=== PATIENT | female | born 1945 | race Caucasian/White ===

== ENCOUNTER → 2017-01-14 | Outpatient (CLI) | payer OTHER | LOC: CIMAGING 08:43 | PROVIDERS: ATTEND Physician Assistant Medical | DX: N28.1 Cyst of kidney, acquired (principal) | CPT/HCPCS: 76770-PO ==

== ENCOUNTER → 2017-02-03 | Outpatient (CLI) | payer OTHER | LOC: FIMAGING 13:46 | PROVIDERS: ATTEND Family Medicine | DX: Z12.31 Encounter for screening mammogram for malignant neoplasm of breast (principal) | CPT/HCPCS: G0202 ==

== ENCOUNTER 2017-02-21 10:45 | Emergency (ER) | payer OTHER ==
[2017-02-21] MEDS ORDERED: ASPIRIN 81 MG CHEWABLE TAB PO ONE (10:59)
[2017-02-21 11:00] VITALS: RESP 16; TEMP 98.2
--- NOTE | 2017-02-21 11:04 | EDPHY ---
H & P Time Seen by Provider: 02/21/17 10:50 HPI/ROS: HPI Chest discomfort, shortness of breath. 71-year-old female by private vehicle with her . This patient reports that last night at 1:30 a.m. she woke up with what she felt was a fast heart rate. She checked her pulse and her pulse was 80. She then went back to sleep. She then woke up this morning at 6:30 a.m. to 7:00 a.m. and describe having a chest discomfort which she describes as an aching on the anterior aspect of her chest. She reports that she also noted she felt short of breath when she walked upper stairs. She reports that she massaged her chest and her chest discomfort went away. She denies any chest discomfort at this time. She states that she feels mildly short of breath at this time but that has improved as well. She denies any history of coronary artery disease. She had a nuclear stress test done 2 years ago but is unsure of the details of the results of that test. This was done through Dr. Ricco Mccloud. ROS: Constitutional: No fever, no chills. No weakness. Eyes: No discharge. No changes in vision. ENT: No sore throat. No nasal congestion or rhinorrhea. Respiratory: No cough. As above. Cardiac: As above. Gastrointestinal: No abdominal pain, no vomiting, no diarrhea. Genitourinary: No hematuria. No dysuria or increased frequency with urination. Musculoskeletal: No back pain. No neck pain. No myalgias or arthralgias. Skin: No rashes. Neurological: No headache. No focal weakness or altered sensation. Past medical history: Chronic back pain, hypothyroidism. Social history: Nonsmoker. . Here with her . Physical Exam: General Appearance: Alert, no distress. This patient is responding to questions appropriately and in full sentences. This patient appears well- hydrated and well-nourished. Eyes: Pupils equal and round no pallor or injection. No lid edema, erythema or injection. Respiratory: There are no retractions, lungs are clear to auscultation with good air movement bilaterally. Cardiovascular: Regular rate and rhythm. No murmur appreciated. Gastrointestinal: Abdomen is soft and nontender, no masses, bowel sounds normal. No focal tenderness at McBurney's point. No Ren sign. Neurological: Motor sensory function is grossly intact. Cranial nerves are normal. Gait is normal. Skin: Warm and dry, no rashes. Musculoskeletal: Neck is supple and nontender. Extremities are symmetrical. All joints range without pain or impingement. Psychiatric: No agitation. No depression. Database: EKG: EKG time is 11:08 a.m.; EKG shows a narrow complex normal sinus rhythm with a ventricular rate of 62. The MS, QRS, QT intervals are within normal limits. There are no ST-T wave changes indicative of ischemic or injury pattern. No evidence of right heart strain. Interpreted by me. Imaging: Chest x-ray AP portable; the cardiac mediastinal silhouette is unremarkable. No evidence of infiltrate or pneumothorax. No acute cardiopulmonary disease process noted. Interpreted by me. Procedures: Emergency department course: IV placed. She was placed on a ceramic painter. She was given 324 mg of chewed aspirin. EKG and chest x-ray obtained. 12:00 p.m., patient re-evaluated. Resting comfortably at this time. Vital signs reviewed and are normal. I discussed the results of her EKG, chest x-ray and blood work. All reassuring. I discussed admission for observation. She is not sure she wants to do this. I discussed the reasoning for this. She wants to discuss it further with her . 12:20 p.m., patient re-evaluated. Resting comfortably. No chest pain. She does not want to be admitted at this time. I discussed the reasoning for admission the possible detrimental affects of not being admitted. In my professional opinion she understands this. She is requesting discharge. Her consents. I discussed follow-up through her life skills consultant, Dr. Kehinde Mccloud for provocative testing within the next 2-3 days. Return to emergency department precautions were thoroughly reviewed with her and her . All of their questions were answered. She was discharged in good condition. Differential Diagnosis: The differential diagnosis on this patient includes but is not limited to chest wall discomfort, anxiety reaction. Pulmonary embolism, acute coronary syndrome , myocardial infarction, pericarditis, myocarditis, congestive heart failure unlikely. This represents a partial list of diagnoses considered. These considerations are based on history, physical exam, past history, reassessment and diagnostic testing. Smoking Status: Never smoked Constitutional: Initial Vital Signs Temperature (C) 36.8 C 02/21/17 10:57 Heart Rate 65 02/21/17 10:57 Respiratory Rate 16 02/21/17 10:57 Blood Pressure 160/62 H 02/21/17 10:57 O2 Sat (%) 95 02/21/17 10:57 O2 Delivery Mode Room Air Allergies/Adverse Reactions: cyclobenzaprine HCl [From Flexeril] Allergy (Verified 07/11/16 12:51) Home Medications: Medication Instructions Recorded Levothyroxine [Synthroid 137 mcg 137 mcg PO DAILY 05/10/12 (RX)] Medical Decision Making - Diagnostics Imaging Results: Imaging Impressions Chest X-Ray 02/21/17 11:00 IMPRESSION: No evidence for acute cardiopulmonary abnormality. - Data Points Laboratory Results: Laboratory Results 02/21/17 11:15 02/21/17 11:15 02/21/17 02/21/17 02/21/17 11:15 11:15 11:15 WBC 6.81 10^3/uL 10^3/uL (3.80-9.50) RBC 4.70 10^6/uL 10^6/uL (4.18-5.33) Hgb 14.1 g/dL g/dL (12.6-16.3) Hct 41.7 % % (38.0-47.0) MCV 88.7 fL fL (81.5-99.8) MCH 30.0 pg pg (27.9-34.1) MCHC 33.8 g/dL g/dL (32.4-36.7) RDW 12.3 % % (11.5-15.2) Plt Count 266 10^3/uL 10^3/uL (150-400) MPV 10.0 fL fL (8.7-11.7) Neut % (Auto) 64.8 % % (39.3-74.2) Lymph % (Auto) 26.7 % % (15.0-45.0) [place] % (Auto) 5.9 % % (4.5-13.0) Eos % (Auto) 1.8 % % (0.6-7.6) Baso % (Auto) 0.7 % % (0.3-1.7) Nucleat RBC Rel Count 0.0 % % (0.0-0.2) Absolute Neuts (auto) 4.41 10^3/uL 10^3/uL (1.70-6.50) Absolute Lymphs (auto) 1.82 10^3/uL 10^3/uL (1.00-3.00) Absolute Monos (auto) 0.40 10^3/uL 10^3/uL (0.30-0.80) Absolute Eos (auto) 0.12 10^3/uL 10^3/uL (0.03-0.40) Absolute Basos (auto) 0.05 10^3/uL 10^3/uL (0.02-0.10) Absolute Nucleated RBC 0.00 10^3/uL 10^3/uL (0-0.01) Immature Gran % 0.1 % % (0.0-1.1) Immature Gran # 0.01 10^3/uL 10^3/uL (0.00-0.10) PT 13.0 SEC SEC (12.0-15.0) INR 1.01 (0.83-1.16) APTT 27.3 SEC SEC (23.0-38.0) D-Dimer 0.34 ug/mLFEU ug/mLFEU (0.00-0.50) Sodium 144 mEq/L mEq/L (134-144) Potassium 4.2 mEq/L mEq/L (3.5-5.2) Chloride 104 mEq/L mEq/L (97-110) Carbon Dioxide 25 mEq/l mEq/l (22-31) Anion Gap 15 mEq/L mEq/L (8-16) BUN 17 mg/dL mg/dL (7-23) Creatinine 0.9 mg/dL mg/dL (0.6-1.0) Estimated GFR > 60 Glucose 70 mg/dL mg/dL (70-100) Calcium 9.0 mg/dL mg/dL (8.5-10.4) Creatine Kinase 65 IU/L IU/L (0-156) CK-MB (CK-2) Fraction 0.60 ng/mL ng/mL (0-4.55) Troponin I < 0.012 ng/mL ng/mL (0-0.034) NT-Pro-B Natriuret Pep 79 pg/mL pg/mL (0-125) Medications Given: Discontinued Medications Aspirin (Aspirin) 324 mg PO EDNOW ONE Stop: 02/21/17 11:00 Last Admin: 02/21/17 11:13 Dose: 324 mg Departure - Departure Disposition: Home, Routine, Self-Care Clinical Impression: Chest wall discomfort, Transient dyspnea Condition: Good Instructions: Chest Wall Pain (ED) Additional Instructions: Read and follow provided instructions. Follow-up with your your life skills consultant, Dr. Ricco Mccloud, within the next 2-3 days for re-evaluation and provocative testing as discussed. Call his office Wednesday morning for appointment time. Return to the emergency department for return of chest pain, shortness of breath , persistent palpitations or other serious concerns. Referrals: Zarina Wall [Primary Care Provider] - As per Instructions Ricco Mccloud MD [Medical Doctor] - As per Instructions
--- NOTE | 2017-02-21 11:10 | CPEKG ---
Heart Rate: 62 RR Interval: 968 P-R Interval: 168 QRSD Interval: 74 QT Interval: 392 QTC Interval: 398 P Lotus: 55 QRS Lotus: 27 T Wave Lotus: 41 EKG Severity - NORMAL ECG - EKG Impression: SINUS RHYTHM Electronically Signed By: Kel Iverson 21-Feb-2017 11:14:38
[2017-02-21 11:18] LABS: % IMMATURE GRANULYOCYTES 0.1 % (0.0-1.1); ABSOLUTE IMMATURE GRANULOCYTES 0.01 10^3/uL (0.00-0.10); ADD DIFF? NO; ADD MORPH? NO; ADD SCAN? NO; ATYPICAL LYMPHOCYTE FLAG 0 (0-99); FRAGMENT RBC FLAG 0 (0-99); HEMATOCRIT 41.7 % (38.0-47.0); HEMOGLOBIN 14.1 g/dL (12.6-16.3); LEFT SHIFT FLG 0 (0-99); LIPEMIA HEMOLYSIS FLAG 90 (0-99); MEAN CELL HEMOGLOBIN CONCENTR. 33.8 g/dL (32.4-36.7); MEAN CELL VOLUME 88.7 fL (81.5-99.8); PLATELET CLUMPS FLAG 0 (0-99); PLATELET COUNT 266 10^3/uL (150-400); RED CELL DISTRIBUTION WIDTH 12.3 % (11.5-15.2)
[2017-02-21 11:26] LABS: INR 1.01 (0.83-1.16)
[2017-02-21 11:27] LABS: APTT 27.3 SEC (23.0-38.0)
[2017-02-21 11:29] LABS: ANION GAP 15 mEq/L (8-16); CARBON DIOXIDE 25 mEq/l (22-31); CHLORIDE 104 mEq/L (97-110); CREATININE 0.9 mg/dL (0.6-1.0); GLOMERULAR FILTRATION RATE > 60; GLUCOSE 70 mg/dL (70-100); POTASSIUM 4.2 mEq/L (3.5-5.2); SODIUM 144 mEq/L (134-144)
[2017-02-21 11:43] LABS: TROPONIN I < 0.012 ng/mL (0-0.034)
[2017-02-21 12:29] VITALS: BP 162/74; PULSE 58; O2SAT 96
== END 2017-02-21 12:30 | disposition home or self-care (01) ==
LOC: CED 10:45
DX: R07.89 Other chest pain (principal); R06.00 Dyspnea, unspecified
CPT/HCPCS: 71010-PO; 80048-PO; 82550-PO; 82553-PO; 83880-PO; 84484-PO; 85025-PO; 85378-PO; 85610-PO; 85730-PO

== ENCOUNTER 2017-06-11 11:52 | Emergency (ER) | payer OTHER ==
[2017-06-11 12:05] VITALS: TEMP 98.2
--- NOTE | 2017-06-11 12:23 | EDPHY ---
H & P Stated Complaint: insominia and anxiety thyroid issues Time Seen by Provider: 06/11/17 12:21 HPI/ROS: CHIEF COMPLAINT: Concerned about possible hyperthyroidism HISTORY OF PRESENT ILLNESS: The patient presents to the ED concerned about possible hyperthyroidism. She has been having symptoms of insomnia and palpitations increasing over the past several days. The patient has been struggling with adjustments to her thyroid medication over the past 6 weeks. The patient initially was hypothyroid and then developed symptoms of mild hyperthyroidism. She has slowly been weaning her thyroid medications. The patient denies any fever, cough or congestion. The patient denies vomiting, diarrhea or dysuria. She denies any history of fall or trauma. She has no complaints of headache or focal neuro symptoms. The patient is not taking any additional medications aside from Synthroid. REVIEW OF SYSTEMS: A comprehensive 10 point review of systems is otherwise negative aside from elements mentioned in the history of present illness. Source: Patient Exam Limitations: No limitations - Personal History Current Tetanus/Diphtheria Vaccine: Yes Current Tetanus Diphtheria and Acellular Pertussis (TDAP): Yes - Medical/Surgical History Hx Asthma: No Hx Chronic Respiratory Disease: No Hx Diabetes: No Hx Cardiac Disease: No Hx Renal Disease: No Hx Cirrhosis: No Hx Alcoholism: No Hx HIV/AIDS: No Hx Splenectomy or Spleen Trauma: No Other PMH: Thyroid surgery, hypo-thyroid/treated, back spasms - Social History Smoking Status: Never smoked - Physical Exam Exam: General Appearance: Alert, no distress Eyes: Pupils equal and round no pallor or injection ENT, Mouth: Mucous membranes moist Respiratory: There are no retractions, lungs are clear to auscultation Cardiovascular: Regular rate and rhythm Gastrointestinal: Abdomen is soft and nontender, no masses, bowel sounds normal Neurological: A&O, normal motor function, normal sensory exam, normal cranial nerves Skin: Warm and dry, no rashes Musculoskeletal: Neck is supple nontender Extremities: symmetrical, full range of motion Constitutional: Initial Vital Signs Temperature (C) 36.8 C 06/11/17 12:03 Heart Rate 64 06/11/17 12:03 Respiratory Rate 18 06/11/17 12:03 Blood Pressure 164/92 H 06/11/17 12:03 O2 Sat (%) 98 06/11/17 12:03 O2 Delivery Mode Room Air Allergies/Adverse Reactions: cyclobenzaprine HCl [From Flexeril] Allergy (Verified 07/11/16 12:51) Home Medications: Medication Instructions Recorded Levothyroxine [Synthroid 137 mcg 137 mcg PO DAILY 05/10/12 (RX)] Medical Decision Making ED Course/Re-evaluation: The patient presents to the ED with concerns about possible hyperthyroidism. The patient's TSH is normal. Her free T3 is slightly below normal limits. Patient has no evidence of severe hypothyroidism. I have encouraged the patient to follow up with her primary care provider to review her current dosage of thyroid medications. Differential Diagnosis: Differential diagnosis considered includes hyperthyroidism, hypothyroidism, dehydration, anxiety - Data Points Laboratory Results: 06/11/17 12:20 TSH 2.250 uIU/mL uIU/mL (0.465-4.680) Free T3 2.52 pg/mL L pg/mL (2.77-5.27) Departure - Departure Disposition: Home, Routine, Self-Care Clinical Impression: Hypothyroidism Condition: Good Instructions: Hypothyroidism (ED) Additional Instructions: 1. Your TSH level is within normal limits and your T3 level is just slightly below normal. At this point time I would recommend following up with your primary care provider to review your thyroid medication dosage. There is no evidence of critical hyper or hypothyroidism in the ED today. 2. Please return to the ED for markedly worsening symptoms or other concerns. Referrals: Zarina Wall [Primary Care Provider] - As per Instructions
[2017-06-11 13:59] VITALS: BP 147/71; PULSE 55; RESP 16; O2SAT 97
== END 2017-06-11 13:56 | disposition home or self-care (01) ==
LOC: CED 11:52 → EDSTATUS 11:52 → CED 13:56
DX: E03.9 Hypothyroidism, unspecified (principal)
CPT/HCPCS: 84443-PO; 84481-PO

== ENCOUNTER → 2018-02-09 | Outpatient (CLI) | payer OTHER | LOC: FIMAGING 09:35 | PROVIDERS: ATTEND Family Medicine | DX: Z12.31 Encounter for screening mammogram for malignant neoplasm of breast (principal) ==

== ENCOUNTER 2018-06-29 04:21 | Emergency (ER) | payer OTHER ==
--- NOTE | 2018-06-29 05:08 | EDPHY ---
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 Time Seen by Provider: 06/29/18 04:39 HPI/ROS: 72 yo f presents c/o 3 years if episodes where she will wake up in the night with rapid heart beat that generally resolves in a few minutes or with a change in position, but tonight she had the same feeling of a rapid heart beat and it lasted longer, possibly as long as 30 minutes. She denies any symptoms at present. Review of systems As per HPI General no fever no chills no weakness HEENT no eye pain no eye discharge. No eye redness, no sore throat Respiratory no cough, no shortness of breath Cardiac no chest pain, no peripheral edema, positive palpitations GI no abdominal pain, no diarrhea, no constipation, no nausea, no vomiting no flank pain, no hematuria, no dysuria Musculoskeletal no myalgias, no joint pain Heme no easy bruising, no easy bleeding Endo no polyuria, no polydipsia Skin no rashes, no pruritus Neuro no syncope, no dizziness, no headaches Psych is no suicidal ideation, no homicidal ideation Source: Patient, Family Exam Limitations: No limitations - Personal History Current Tetanus Diphtheria and Acellular Pertussis (TDAP): Unsure - Medical/Surgical History Hx Asthma: No Hx Chronic Respiratory Disease: No Hx Diabetes: No Hx Cardiac Disease: No Hx Renal Disease: No Hx Cirrhosis: No Hx Alcoholism: No Hx HIV/AIDS: No Hx Splenectomy or Spleen Trauma: No Other PMH: Thyroid surgery, hypo-thyroid/treated, back spasms, sees Dr. Mccloud for "valve problem" - Family History Significant Family History: No pertinent family hx - Social History Smoking Status: Never smoked Alcohol Use: None Drug Use: None - Physical Exam Exam: Petite 72-year-old female, slightly anxious alert and oriented in no acute distress nontoxic appearance, afebrile Monitor shows a normal sinus rhythm rate in the 60s HEENT atraumatic normocephalic, extraocular muscles intact, anicteric Oropharynx negative for erythema negative exudate, tolerating her own secretions Neck supple no meningismus Lungs clear to auscultation bilaterally Heart regular rate and rhythm without murmur rub or gallop Abdomen nondistended normoactive bowel sounds soft nontender Back no CVA tenderness, no step-offs, no spinal tenderness Extremities no cyanosis clubbing or edema Neuro alert and oriented, no focal deficits Constitutional: Initial Vital Signs Temperature (C) 36.7 C 06/29/18 04:48 Heart Rate 70 06/29/18 04:48 Respiratory Rate 12 06/29/18 04:48 Blood Pressure 163/67 H 06/29/18 04:48 O2 Sat (%) 95 06/29/18 04:48 O2 Delivery Mode Room Air Allergies/Adverse Reactions: cyclobenzaprine HCl [From Flexeril] Allergy (Verified 06/29/18 04:48) Home Medications: Medication Instructions Recorded Levothyroxine [Synthroid 137 mcg 137 mcg PO DAILY 05/10/12 (RX)] Medical Decision Making ED Course/Re-evaluation: Patient seen and evaluated for palpitations lasting approximately 30 min, with history of similar for 3 years. EKG normal sinus rhythm rate of 60 Labs CBC, BMP, troponin within normal limits Impression Palpitations Plan Discharge home Advise follow up with primary care Differential Diagnosis: Differential diagnosis considered but not limited to: Myocardial infarction, bradycardia, tachycardia, arrhythmia - Data Points Laboratory Results: 06/29/18 06/29/18 06/29/18 05:04 05:04 04:52 POC Sodium 136 mEq/L mEq/L (135-145) POC Potassium 4.3 mEq/L mEq/L (3.3-5.0) POC Chloride 108.0 mEq/L mEq/L (97-110) POC Total CO2 30 mEq/L mEq/L (22-31) POC BUN 14 mg/dL mg/dL (7-23) POC Creatinine 1.0 mg/dL mg/dL (0.6-1.0) POC Glucose 94 mg/dL mg/dL (70-100) POC Calcium 10.0 mg/dL mg/dL (8.5-10.4) POC Troponin I 0.00 ng/mL ng/mL 0.02 ng/mL ng/mL (0.00-0.08) (0.00-0.08) Point of Care Test Results: CBC CBC Collection Date 06/29/18 CBC Collection Time 04:30 WBC 7.6 RBC 4.85 HGB 14.8 HCT 42.4 PLT 253 Neut # 4.7 Neut 62.7 LYMPH # 2.3 LYMPH 29.8 Other WBC # 0.6 Other WBC 7.5 MCV 87.4 Chemistry 06/29/18 06/29/18 06/29/18 05:04 05:04 04:52 POC Sodium 136 mEq/L mEq/L (135-145) POC Potassium 4.3 mEq/L mEq/L (3.3-5.0) POC Chloride 108.0 mEq/L mEq/L (97-110) POC Total CO2 30 mEq/L mEq/L (22-31) POC BUN 14 mg/dL mg/dL (7-23) POC Creatinine 1.0 mg/dL mg/dL (0.6-1.0) POC Glucose 94 mg/dL mg/dL (70-100) POC Calcium 10.0 mg/dL mg/dL (8.5-10.4) POC Troponin I 0.00 ng/mL ng/mL 0.02 ng/mL ng/mL (0.00-0.08) (0.00-0.08) Departure - Departure Disposition: Home, Routine, Self-Care Clinical Impression: Intermittent palpitations Condition: Good Instructions: Heart Palpitations (ED) Referrals: Ricco Mccloud MD [Medical Doctor] - As per Instructions Zarina Wall [Non Staff Provider ()] - As per Instructions
[2018-06-29 05:30] VITALS: BP 155/72
--- NOTE | 2018-06-29 10:11 | CPEKG ---
Test Reason : OPEN Blood Pressure : / mmHG Vent. Rate : 060 BPM Atrial Rate : 060 BPM P-R Int : 162 ms QRS Dur : 078 ms QT Int : 407 ms P-R-T Axes : 056 049 054 degrees QTc Int : 407 ms Sinus rhythm Confirmed by Deshaun Mccray ([id number]) on 06/29/2018 10:11:09 AM Referred By: Confirmed By:Deshaun Mccray
== END 2018-06-29 05:45 | disposition home or self-care (01) ==
LOC: CED 04:21
DX: R00.2 Palpitations (principal)
CPT/HCPCS: 80048-PO; 84484-PO